=== PATIENT | female | born 1980 | race Caucasian/White ===

== ENCOUNTER 2020-11-24 13:40 | Emergency (ER) | payer OTHER, SELFPAY ==
--- NOTE | ~2020-11-24 | CT_ITS ---
EXAMINATION: CT ABDOMEN AND PELVIS WITHOUT CONTRAST CLINICAL INFORMATION: pt c 6cm sclerotic region in pelvis unknown etiology . COMPARISON: Plain films as evening. TECHNIQUE: Multidetector volumetric imaging was performed from the superior aspect of the liver through the pubic symphysis without contrast per request. Sagittal and coronal reformatted images were obtained on the technologist workstation. This CT examination was performed using dose optimization techniques as appropriate, variously including the following: *Automated exposure control *Adjustment of mA and/or kV according to patient size (this includes techniques or standardized protocols for targeted exams where dose is matched to indication/reason for exam; i.e. extremities or head) *Use of iterative reconstruction technique DLP: 780 mGy-cm. FINDINGS: LUNG BASES: The visualized lung bases are unremarkable. LIVER, GALLBLADDER, BILIARY TREE: The non-contrast liver is normal in size, shape, and attenuation. No focal hepatic lesion or biliary ductal dilatation is present. The gallbladder is unremarkable with no evidence of radiopaque gallstones, gallbladder wall thickening, or obvious pericholecystic inflammatory changes. PANCREAS: Unremarkable. SPLEEN: Unremarkable. ADRENAL GLANDS: Unremarkable. KIDNEYS AND URETERS: The kidneys are normal in size, shape, and attenuation. No hydronephrosis, hydroureter, or calculi seen. No perinephric stranding. BLADDER: Unremarkable. GASTROINTESTINAL TRACT: Few scattered colonic diverticula are seen. No evidence for diverticulitis or colonic wall thickening. Decompressed retrocecal appendix partially visualized. No focal inflammatory changes. Visualized small bowel unremarkable. ABDOMINAL WALL: Small fat-containing umbilical hernia LYMPHOVASCULAR STRUCTURES: No lymphadenopathy. The aorta is unremarkable.. PELVIC VISCERA: Unremarkable. OSSEUS STRUCTURES: Degenerative changes in the pubic symphysis with nonspecific sclerosis in the left pubic symphysis and milder subchondral degenerative sclerotic changes in the right pubic symphysis. There is focal sclerosis within the posterior right iliac bone abutting the sacroiliac joint with additional sclerosis crossing the sacroiliac joint into the adjacent right sacrum I do not appreciate any bony destruction or periosteal reaction. No soft tissue component CT/CT abdomen pelvis wo con IMPRESSION: I do not appreciate any acute intra-abdominal process. There are regions of sclerosis within the right pelvis abutting the sacroiliac joint and on the left pubic bone abutting the pubic symphysis. Etiology is uncertain. I do not appreciate any cortical disruption or periosteal reaction. No soft tissue component. No aggressive features. Etiology is uncertain. These abut the right sacroiliac joint and pubic symphysis suggesting possible degenerative changes as the underlying etiology although the right iliac sclerosis extends more lateral than would be expected for sequela of sacroiliitis. Clinical correlation would be needed.
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
[2020-11-24 14:03] VITALS: BP 150/94; BP 180/108; PULSE 88; PULSE 92; RESP 18; TEMP 37; O2SAT 96; O2SAT 98; BMI 30.9
[2020-11-24] MEDS: diazePAM 5 MG TABLET PO (15:12)
[2020-11-24] MEDS: oxyCODONE HCl Immed Release 5 MG TABLET PO (15:12)
[2020-11-24 15:17] VITALS: BP 152/87; PULSE 84; RESP 17; O2SAT 99
[2020-11-24 15:38] VITALS: BP 145/92; PULSE 81; RESP 16; TEMP 36.6; O2SAT 98
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
[2020-11-24] MEDS: Cyclobenzaprine HCl 10 MG TABLET 5 MG PO (19:25)
[2020-11-24 19:34] VITALS: BP 136/76; PULSE 78; RESP 17; TEMP 36.8; O2SAT 98
== END 2020-11-24 20:27 | disposition home or self-care (01) ==
PROVIDERS: Emergency Provider Emergency Medicine Emergency Medical Services
DX: S13.4XXA Sprain of ligaments of cervical spine, initial encounter (principal); S06.0X9A Concussion with loss of consciousness of unspecified duration, initial encounter; M54.2 Cervicalgia; G44.309 Post-traumatic headache, unspecified, not intractable; R07.81 Pleurodynia; M25.552 Pain in left hip; M25.551 Pain in right hip; M25.562 Pain in left knee; M25.561 Pain in right knee; V43.52XA Car driver injured in collision with other type car in traffic accident, initial encounter; Y93.9 Activity, unspecified; Y92.410 Unspecified street and highway as the place of occurrence of the external cause; Y99.9 Unspecified external cause status; Z79.899 Other long term (current) drug therapy
CPT/HCPCS: 70450; 71046; 72125; 73522; 73564; 74176; 99284

== ENCOUNTER 2020-12-23 11:14 | Outpatient (REF) | payer MEDICAID, SELFPAY ==
--- NOTE | ~2020-12-23 | XR_ITS ---
EXAMINATION: XR CERVICAL SPINE CLINICAL INFORMATION: Cervicalgia COMPARISON: CT scan of the cervical spine November 2020. TECHNIQUE: 5 views of the cervical spine including obliques FINDINGS: Slightly limited in that the cervical thoracic junction is obscured on the lateral view from the overlying soft tissues and bone. The vertebral alignment is normal. No intrinsic bony abnormality. The disc heights and neural foramina are well maintained. The endplates and posterior elements are normal. No fracture or subluxation. The surrounding prevertebral soft tissues are unremarkable. XR/XR cervical spine min 6V IMPRESSION: Unremarkable examination.
== END 2020-12-23 11:15 | disposition home or self-care (01) ==
LOC: HO.XRAY 11:14
PROVIDERS: PCP Internal Medicine; Visit Provider Emergency Medicine
DX: M54.2 Cervicalgia (principal)
CPT/HCPCS: 72052

== ENCOUNTER 2021-01-19 15:17 | Emergency (ER) | payer OTHER, MEDICAID, SELFPAY ==
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
[2021-01-19 15:25] VITALS: BP 124/76; BP 138/103; PULSE 81; PULSE 98; RESP 16; TEMP 36.7; O2SAT 98; BMI 36.8
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
[2021-01-19] MEDS: Metoclopramide HCl 10 MG/2 ML VIAL IVPUSH (16:23)
[2021-01-19] MEDS: Ketorolac Tromethamine 30 MG/ML VIAL IVPUSH (16:23)
[2021-01-19] MEDS: 0.9 % Sodium Chloride 1,000 ML 999 ML IV (16:23)
[2021-01-19] MEDS: diphenhydrAMINE HCL 50 MG/ML VIAL 25 MG IVPUSH (16:23)
[2021-01-19 17:58] VITALS: BP 130/92; PULSE 78; RESP 16; TEMP 37.1; O2SAT 96
== END 2021-01-19 18:14 | disposition home or self-care (01) ==
PROVIDERS: Emergency Provider Emergency Medicine; PCP Internal Medicine
DX: G43.909 Migraine, unspecified, not intractable, without status migrainosus (principal); M62.838 Other muscle spasm; M54.2 Cervicalgia; M79.602 Pain in left arm; Z79.899 Other long term (current) drug therapy
CPT/HCPCS: 70450; 72125; 96365; 96375; 99284; J1200; J1885; J2765

== ENCOUNTER 2021-05-08 15:41 | Outpatient (REF) | payer OTHER, MEDICAID, SELFPAY ==
--- NOTE | ~2021-05-08 | US_ITS ---
EXAMINATION: US VENOUS ULTRASOUND WITH DOPPLER LOWER EXTREMITY, LEFT CLINICAL INFORMATION: Left lower extremity pain and swelling. Assess for occult DVT. COMPARISON: None TECHNIQUE: Ultrasound of the deep veins is performed from the hip to the calf with compression sonography and color and pulse Doppler assessment. Spectral analysis with color-flow imaging is performed. FINDINGS: There is normal venous compression and respiratory variation and augmented flow. The visualized common femoral vein, superficial femoral vein, profunda femoral vein, popliteal vein, and the trifurcation region shows no evidence of deep venous thrombosis. No visible popliteal fossa cyst. US/US venous duplex LE LT IMPRESSION: No DVT demonstrated in the left lower extremity.
--- NOTE | ~2021-05-08 | XR_ITS ---
EXAMINATION: XR CHEST CLINICAL INFORMATION: Unspecified asthma, uncomplicated COMPARISON: Chest 11/24/2020 TECHNIQUE: 2 views of the chest were obtained. FINDINGS: No significant abnormality is noted involving the heart, lungs, mediastinum, bony thorax or soft tissues. XR/XR chest 2V IMPRESSION: Unremarkable chest examination.
== END 2021-05-08 15:42 | disposition home or self-care (01) ==
LOC: HO.US 15:41
PROVIDERS: Absent Provider Internal Medicine; PCP Internal Medicine; Visit Provider General Practice
DX: M25.562 Pain in left knee (principal); M79.662 Pain in left lower leg; J45.909 Unspecified asthma, uncomplicated; R10.13 Epigastric pain
CPT/HCPCS: 71046; 93971

== ENCOUNTER 2021-10-06 09:15 | Outpatient (REF) | payer MEDICAID, SELFPAY ==
[2021-10-06 10:51] LABS: MANUAL DIFF FLAG NO
[2021-10-06 11:43] LABS: Basophils Absolute Auto 0.1 X10*3/uL (0.0-0.2); Basophils Percent Auto 0.9 % (0-2); Eosinophils Absolute Auto 0.2 X10*3/uL (0.0-0.4); Eosinophils Percent Auto 3.4 % (0-4); Hematocrit 39.2 % (37.0-47.0); Hemoglobin 12.3 g/dl (12.0-16.0); Imm Gran Abs Auto 0.02 X10*3/uL (0.00-0.03); Imm Gran Pct Auto 0.3 % (0.0-0.4); Lymphocytes Absolute Auto 1.8 X10*3/uL (1.2-4.9); Lymphocytes Percent Auto 26.7 % (20-40); Mean Corpuscular HGB Conc 31.4 g/dl (31.0-35.0); Mean Corpuscular Hemoglobin 25.4 pg (27.0-33.0); Mean Corpuscular Volume 80.8 fL (80.0-98.0); Monocytes Absolute Auto 0.4 X10*3/uL (0.1-1.2); Monocytes Percent Auto 6.2 % (2-11); Neutrophils Absolute Auto 4.2 x10*3/uL (2.0-8.3); Neutrophils Percent Auto 62.5 % (45-73); Platelet Count 237 X10*3/uL (160-400); Red Blood Count 4.85 X10*6/uL (4.20-5.50); Red Cell Distribution Width 13.6 % (11.0-16.0); White Blood Count 6.8 X10*3/uL (4.8-10.8)
[2021-10-06 11:52] LABS: Alanine Aminotransferase 14 U/L (0-31); Albumin Level 4.1 g/dL (3.5-5.0); Alkaline Phosphatase 99 U/L (39-117); Anion Gap 11 (12-20); Aspartate Amino Transferase 15 U/L (5-31); Bilirubin Total 0.2 mg/dL (0.0-1.0); Blood Urea Nitrogen 8 mg/dL (9-16); Calcium 9.2 mg/dL (8.4-10.2); Carbon Dioxide 25 mmol/L (22-29); Chloride 105 mmol/L (96-108); Estimated Glomerular Filt Rate > 60; Glucose Fasting 93 mg/dL (60-99); Potassium 4.8 mmol/L (3.3-5.1); Sodium 136 mmol/L (135-145); Total Protein 7.6 g/dL (6.5-8.0)
== END 2021-10-06 09:16 | disposition home or self-care (01) ==
LOC: HO.LAB 09:15
PROVIDERS: PCP Internal Medicine; Referring Provider Internal Medicine; Visit Provider Nurse Practitioner
DX: R13.19 Other dysphagia (principal); K21.9 Gastro-esophageal reflux disease without esophagitis; K59.00 Constipation, unspecified
CPT/HCPCS: 36415; 80053; 85025

== ENCOUNTER 2021-11-24 09:42 | Day surgery (SDC) | payer MEDICAID, SELFPAY ==
[2021-11-20 13:16] VITALS: BMI 44.3
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
[2021-11-24] MEDS: Lactated Ringers 1,000 ML 50 ML IVCONT (10:27)
--- NOTE | 2021-11-24 11:18 | MHC.SHP ---
Pre-Procedural Eval Section A Date of Service: 11/24/21 The patient is an INPATIENT: No The History & Physical has been completed within 30 days and I have reviewed it.: No Section B Chief Complaint: dysphagia, reflux disease Details of Present Illness: dysphagia, GERD, early satiety Relevant Family History (Specify if Yes): No Relevant Social History: None Present Medications: see Short Stay Collaborative assessment Medical History: Significant History (Anxiety Asthma Depression) History of Previous Operations: Relevant previous surgery/procedure and date(s) ( history of tubal ligation, history of ) Allergies: Allergies Allergy/AdvReac Type Severity Reaction Status Date / Time No Known Allergies Allergy Verified 11/20/21 13:14 [No Known Allergies*] Review of Systems Sugical H&P ROS: Negative: Constitution, Cardiovascular and Respiratory and Yes, Specify: Gastrointestinal ( dysphagia) Exam Surgical H&P Exam: Normal: Heart, Normal: Lungs, Normal: Extremities and Normal: Abdomen Plan Diagnosis/Plan: Unchanged I have reviewed the history and physical and performed a pertinent physical examination on my patient. No changes have occurred unless specified.
--- NOTE | 2021-11-24 11:20 | P.OP_ITS ---
Operative Note Operative Note Date of Service: 11/24/21 Narrative: Pre-op diagnosis: dysphagia, GERD, early satiety Post-op diagnosis:?other (GERD, dysphagia, esophagitis with stricture, gastritis) Procedure: FLEXIBLE TRANSORAL UPPER GASTROINTESTINAL ENDOSCOPY WITH BIOPSIES AND ESOPHAGEAL BALLOON DILATION Consent:?Indications for the procedure and potential complications of bleeding, perforation, reaction to medications and missed diagnosis were discussed with the patient with the help of a Chinese recoil spring winder and informed consent was obtained. Instrument:?Olympus GIF H 190 mid size upper endoscope Monitoring: Vital signs and clinical assessment, continuous EKG monitoring, Pulse oximetry, Carbon Dioxide monitoring and blood pressure monitoring were done throughout the procedure. Procedure:?The patient was placed in the left lateral decubitis position and pre-procedure medications were administered and a bite block was placed. The endoscope was inserted into the mouth and advanced under direct vision to the third part of duodenum. A careful inspection was made as the upper endoscope was withdrawn including a retroflexed examination of the proximal stomach; Findings and interventions are described below. Findings: Larynx:? Normal Esophagus: GE junction at 34 cms, small hiatal hernia 34 to 36 cms. Focal esophagitis with 1-2 cms erosions at the GE junction with mild narrowing - biopsied. Esophageal balloon dilation was performed with an 18 mm (54 F) CRE balloon x 60 seconds Stomach: Moderate gastric erythema. Biopsies were obtained. Grade 2 flap valve on retroflexed examination of the cardia. Duodenum: Normal bulb and descending duodenum Intervention: Biopsies and esophageal balloon dilation as noted above Impression and Post Procedure Diagnosis: Endoscopy Findings: ESOPHAGUS: GE junction at 34 cms, small hiatal hernia 34 to 36 cms. Focal esophagitis with 1-2 cms erosions at the GE junction with mild narrowing - biopsied. Esophageal balloon dilation was performed with 18 mm (54 F) CRE balloon x 60 seconds STOMACH: Gastritis Plan: Continue Omeprazole 40 mg daily. Await pathology results Patient has an appointment on 12/08/21 in the GI Clinic with? Niurka Kumar NP . Repeat EGD in 3 months to confirm esophagitis has healed. Above findings were reviewed with the patient and GERD and Hiatal Hernia handouts were given in the discharge area Surgeon: Rommel Gonzalez MD Anesthesia:?EVERARDO (Stacey Boykin CRNA) Was an Operating Engineer Apprentice used for this Procedure?:?No Operating Engineer Apprentice:?Liana Cruz Estimated blood loss (mL):?0 Pathology:?other (A- GASTRIC ANTRUM? B- ESOPHAGEAL STRICTURE BIOPSIES) Condition:?stable Disposition:?PACU
[2021-11-24 12:18] VITALS: BP 110/77; PULSE 92; RESP 18; TEMP 36.1; O2SAT 99
[2021-11-24 12:33] VITALS: BP 129/81; PULSE 78; RESP 16; TEMP 36.1; O2SAT 100
[2021-11-24 12:48] VITALS: BP 134/85; PULSE 89; RESP 16; TEMP 36.1; O2SAT 100
[2021-11-24 13:02] VITALS: PULSE 78; RESP 16; TEMP 36.1; O2SAT 100
== END 2021-11-24 13:49 | disposition home or self-care (01) ==
PROVIDERS: PCP Internal Medicine; Visit Provider Internal Medicine Gastroenterology
PROC: 0DJ08ZZ Inspection of Upper Intestinal Tract, Via Natural or Artificial Opening Endoscopic (ICD-10-PCS; CPT 43235; principal; 2021-11-24 10:50)
DX: K21.9 Gastro-esophageal reflux disease without esophagitis (principal); R13.19 Other dysphagia; K20.80 Other esophagitis without bleeding; K22.2 Esophageal obstruction; K29.50 Unspecified chronic gastritis without bleeding; K44.9 Diaphragmatic hernia without obstruction or gangrene; R68.81 Early satiety; K59.00 Constipation, unspecified; E78.00 Pure hypercholesterolemia, unspecified; E55.9 Vitamin D deficiency, unspecified; G47.33 Obstructive sleep apnea (adult) (pediatric); J45.909 Unspecified asthma, uncomplicated; Z79.899 Other long term (current) drug therapy
CPT/HCPCS: 43249; 43239; 88305; 88342; C1726

== ENCOUNTER → 2021-12-08 12:26 | Outpatient (BNVA) | payer MEDICAID, SELFPAY | PROVIDERS: Referring Provider Internal Medicine; Visit Provider Nurse Practitioner | DX: K30 Functional dyspepsia (principal); A04.8 Other specified bacterial intestinal infections | CPT/HCPCS: 99212 ==

== ENCOUNTER 2022-02-27 10:13 | Outpatient (REF) | payer MEDICAID, SELFPAY ==
[2022-02-27 10:30] LABS: MANUAL DIFF FLAG NO
[2022-02-27 11:54] LABS: Basophils Percent Auto 0.9 % (0-2); Eosinophils Absolute Auto 0.1 X10*3/uL (0.0-0.4); Eosinophils Percent Auto 2.1 % (0-4); Hematocrit 34.9 % (37.0-47.0); Hemoglobin 11.2 g/dl (12.0-16.0); Imm Gran Abs Auto 0.02 X10*3/uL (0.00-0.03); Imm Gran Pct Auto 0.4 % (0.0-0.4); Lymphocytes Absolute Auto 1.4 X10*3/uL (1.2-4.9); Lymphocytes Percent Auto 30.6 % (20-40); Mean Corpuscular HGB Conc 32.1 g/dl (31.0-35.0); Mean Corpuscular Hemoglobin 25.9 pg (27.0-33.0); Mean Corpuscular Volume 80.6 fL (80.0-98.0); Mean Platelet Volume 11.3 fL (9.4-12.3); Monocytes Absolute Auto 0.3 X10*3/uL (0.1-1.2); Monocytes Percent Auto 6.4 % (2-11); Neutrophils Absolute Auto 2.8 x10*3/uL (2.0-8.3); Neutrophils Percent Auto 59.6 % (45-73); Platelet Count 212 X10*3/uL (160-400); Red Blood Count 4.33 X10*6/uL (4.20-5.50); Red Cell Distribution Width 14.2 % (11.0-16.0); White Blood Count 4.7 X10*3/uL (4.8-10.8)
[2022-02-27 12:21] LABS: TSH reflex Free T4 1.04 uIU/mL (0.32-4.0)
== END 2022-02-27 10:14 | disposition home or self-care (01) ==
LOC: HO.LAB 10:13
PROVIDERS: PCP Internal Medicine; Visit Provider Nurse Practitioner
DX: K30 Functional dyspepsia (principal); R13.19 Other dysphagia; K21.9 Gastro-esophageal reflux disease without esophagitis; K59.00 Constipation, unspecified; A04.8 Other specified bacterial intestinal infections; R63.5 Abnormal weight gain
CPT/HCPCS: 36415; 84443; 85025; 99212

== ENCOUNTER → 2022-05-15 10:56 | Outpatient (BNVA) | payer MEDICAID, SELFPAY | PROVIDERS: PCP Internal Medicine; Visit Provider Nurse Practitioner | DX: K30 Functional dyspepsia (principal); A04.8 Other specified bacterial intestinal infections; R13.19 Other dysphagia; K21.9 Gastro-esophageal reflux disease without esophagitis; K59.00 Constipation, unspecified | CPT/HCPCS: 99212 ==

== ENCOUNTER → 2022-05-25 10:02 | Outpatient (BNVA) | payer MEDICAID, SELFPAY | PROVIDERS: PCP Internal Medicine; Visit Provider Nurse Practitioner Family | DX: G56.92 Unspecified mononeuropathy of left upper limb (principal); M79.602 Pain in left arm; R29.898 Other symptoms and signs involving the musculoskeletal system; M25.512 Pain in left shoulder | CPT/HCPCS: 99202 ==

== ENCOUNTER 2022-05-31 11:00 | Outpatient (RCR) | payer OTHER, MEDICAID, SELFPAY | END 2022-11-01 09:35 | disposition home or self-care (01) | LOC: HO.PTCHIC 11:00 | PROVIDERS: PCP Internal Medicine; Visit Provider Internal Medicine | DX: M25.562 Pain in left knee (principal) | CPT/HCPCS: 97014; 97110; 97162 ==

== ENCOUNTER 2022-08-02 10:54 | Day surgery (SDC) | payer MEDICAID, SELFPAY ==
[2022-07-26 13:49] VITALS: BMI 44.1
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
[2022-08-02 11:02] VITALS: BP 160/108; PULSE 92; RESP 16; TEMP 36.5; O2SAT 96
[2022-08-02] MEDS: Lactated Ringers 1,000 ML 100 ML IVCONT (11:19)
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
--- NOTE | 2022-08-02 11:42 | P.OP_ITS ---
Operative Note Operative Note Date of Service: 08/02/22 Narrative: Procedure: Esophagogastroduodenoscopy Endoscopist: Tatum Nicholas MD Indication: History of esophagitis and GEJ stenosis Anesthesia Provider: Bernice Rockwell CRNA Anesthesia Type: MAC Instrument: [id number] ?? EGD Procedure:?? The procedure, indications, preparation and potential complications were reviewed with the patient, who indicated understanding and gave written informed consent to proceed. A physical exam was performed. The endoscope was introduced through the mouth, and advanced to the second part of duodenum. The mucosa was carefully examined on slow withdrawal of the endoscope. The patient tolerated the procedure well. There were no immediate complications.? ? EGD Findings:? * Esophagus:? Multiple erosions and superficial ulcerations measuring 1-2 cm long at the GEJ involving almost the entire circumference. The Z line was at 36 cm. Small hiatal hernia was noted. Diaphragmatic pinch was at 38 cm. * Stomach:? Normal mucosa was noted in the stomach. Random gastric biopsies were taken to rule out H Pylori infection. * Duodenum:? Normal mucosa was noted in the whole of the examined duodenum. ? EGD Impressions:? * Grade D esophagitis * Normal stomach (biopsy) * Normal duodenum ?? Recommendations:?? * Start high dose PPI therapy. Pantoprazole 40mg BID prescribed for 8 weeks followed by 40mg once daily * Sucralfate 1g QID for 2 weeks * Repeat EGD in 10-12 weeks to assess for healing. * Follow biopsy results. Our office will call or send a letter with results within 7-10 days. * If H pylori +, patient will be prescribed eradication therapy followed by test of cure. * Avoid NSAIDs. Above has been reviewed with the patient. Relevant educational hand outs were provided at discharge. ?
[2022-08-02 12:07] VITALS: BP 126/81; PULSE 108; TEMP 36.6; O2SAT 98
[2022-08-02 12:22] VITALS: BP 131/78; PULSE 74; RESP 18; O2SAT 98
[2022-08-02 12:37] VITALS: BP 129/72; PULSE 74; RESP 18; O2SAT 98
[2022-08-02 12:52] VITALS: BP 134/77; PULSE 77; RESP 18; TEMP 37.3; O2SAT 98
== END 2022-08-02 13:46 | disposition home or self-care (01) ==
PROVIDERS: PCP Internal Medicine; Visit Provider Internal Medicine
PROC: 0DJ08ZZ Inspection of Upper Intestinal Tract, Via Natural or Artificial Opening Endoscopic (ICD-10-PCS; CPT 43235; principal; 2022-08-02 11:50)
DX: R13.19 Other dysphagia (principal); K21.9 Gastro-esophageal reflux disease without esophagitis; K20.80 Other esophagitis without bleeding; K44.9 Diaphragmatic hernia without obstruction or gangrene; E78.00 Pure hypercholesterolemia, unspecified; J45.909 Unspecified asthma, uncomplicated; G47.33 Obstructive sleep apnea (adult) (pediatric); F41.1 Generalized anxiety disorder; F32.A Depression, unspecified; Z79.51 Long term (current) use of inhaled steroids; Z79.899 Other long term (current) drug therapy
CPT/HCPCS: 43239; 88305; 88342; J2250

== ENCOUNTER → 2022-08-16 10:57 | Outpatient (BNVA) | payer MEDICAID, SELFPAY | PROVIDERS: PCP Internal Medicine; Visit Provider Nurse Practitioner | DX: K22.10 Ulcer of esophagus without bleeding (principal); R13.19 Other dysphagia | CPT/HCPCS: 99212 ==

== ENCOUNTER → 2023-03-14 10:43 | Outpatient (BNVA) | payer MEDICAID, SELFPAY | PROVIDERS: Visit Provider Nurse Practitioner | DX: Z01.818 Encounter for other preprocedural examination (principal); K22.10 Ulcer of esophagus without bleeding; K30 Functional dyspepsia; K21.9 Gastro-esophageal reflux disease without esophagitis; K59.00 Constipation, unspecified | CPT/HCPCS: 99212 ==

== ENCOUNTER 2023-04-29 13:12 | Outpatient (AMB) | payer MEDICAID, SELFPAY ==
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
== END 2023-04-29 13:51 | disposition home or self-care (01) ==
PROVIDERS: PCP Internal Medicine; Referring Provider Internal Medicine; Visit Provider Surgery
DX: D17.20 Benign lipomatous neoplasm of skin and subcutaneous tissue of unspecified limb (principal)
CPT/HCPCS: 99203

== ENCOUNTER → 2023-04-29 13:12 | Outpatient (BNVA) | payer MEDICAID, SELFPAY | PROVIDERS: PCP Internal Medicine; Referring Provider Internal Medicine; Visit Provider Surgery | DX: D17.21 Benign lipomatous neoplasm of skin and subcutaneous tissue of right arm (principal) | CPT/HCPCS: 99202 ==

== ENCOUNTER 2023-05-21 07:46 | Day surgery (SDC) | payer MEDICAID, SELFPAY ==
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
[2023-05-21] VITALS (7 sets, daily range): BP systolic 118–148; BP diastolic 70–87; PULSE 57–75; RESP 14–18; TEMP 36.1–36.8; O2SAT 95–99; BMI 36.4
[2023-05-21] MEDS: Lactated Ringers 1,000 ML 100 ML IVCONT (09:13)
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
--- NOTE | 2023-05-21 09:32 | PC.NURSE ---
dr. boyle aware that patient has runny clear nose and congested sounding voice. patient states this is her baseline due to her chronic allergies. afebrile. no cough noted. lcta. no interventions at this time.
--- NOTE | 2023-05-21 09:37 | MHC.SHP ---
Pre-Procedural Eval Section A Date of Service: 05/21/23 The patient is an INPATIENT: No Changes since office visit: No Cold of Flu in the past 2 weeks, No New Medical Problems, No Changes in Medication and No Patient answered all questions The History & Physical has been completed within 30 days and I have reviewed it.: Yes Section B Chief Complaint: Benign lipomatous neoplasm of skin and subcutaneou Allergies: Allergies Allergy/AdvReac Type Severity Reaction Status Date / Time No Known Allergies Allergy Verified 05/21/23 09:23 [No Known Allergies*] Plan I have reviewed the history and physical and performed a pertinent physical examination on my patient. No changes have occurred unless specified. Time Spent With Patient Time: Total time managing care of this patient today ____ minutes.
--- NOTE | 2023-05-21 11:06 | W.PM.OPN ---
Operative Note Operative Note Date of Service: 05/21/23 Narrative: Preop diagnosis: Lipoma right axilla Postop diagnosis: The same Procedure: Excision of lipoma right axilla Surgeon: Efrain Costa MD The patient is a 42-year-old female with note of a soft, lipomatous mass on the right axilla that was not really well-defined. She understood the technique of excision under anesthesia. She was aware of the risks, benefits, and alternatives. She was brought to the operating room. She was placed supine under general anesthesia via laryngeal mask airway. The right arm was abducted to expose the right axilla. The right breast was retracted away from the axilla using wide tape. The right axilla was prepped and draped in the usual sterile fashion. A surgical time-out was done. The patient received cefazolin 2 g IV preoperatively . I infiltrated the planned line of incision on the skin overlying the lipoma using lidocaine 1%. I made an incision on the skin overlying this lipoma using blade 15 and this was carried down through the full-thickness of the skin and subcutaneous fat. I was able to visualize lipomatous tissue and sharply dissected this off of the rest of subcutaneous layer with Metzenbaum scissors and electrocautery. This lipoma was not well-defined so we encountered some oozing and bleeding during the dissection which we occasionally had to ligate with Polysorb 3-0 ties. Continued to circumferentially excise this lipoma. This fragmented during the dissection The aggregate size with lipoma was about 3 cm I irrigated. I observed for hemostasis. Once hemostasis was confirmed, I proceeded to reapposed the deep subcutaneous layer with multiple Polysorb 3-0 simple interrupted sutures. Skin closure was achieved with Polysorb 4-0 subcuticular running sutures. I infiltrated the incision with Marcaine 0.5% for postop analgesia. Dressings were applied. The procedure was then completed . The patient tolerated the procedure well. There were no immediate complications. Initial and final counts of sponges and instruments were correct. Estimated blood loss about 40 cc. The patient was extubated without difficulty and transferred to the recovery room with stable vital signs.
== END 2023-05-21 12:41 | disposition home or self-care (01) ==
PROVIDERS: PCP Internal Medicine; Visit Provider Surgery
PROC: (CPT 24071; principal; 2023-05-21 11:30)
DX: D17.21 Benign lipomatous neoplasm of skin and subcutaneous tissue of right arm (principal); Z80.3 Family history of malignant neoplasm of breast; J45.909 Unspecified asthma, uncomplicated; E78.00 Pure hypercholesterolemia, unspecified; G47.33 Obstructive sleep apnea (adult) (pediatric); F32.A Depression, unspecified; F41.1 Generalized anxiety disorder; Z79.51 Long term (current) use of inhaled steroids; Z79.899 Other long term (current) drug therapy
CPT/HCPCS: 24071; 88304; 88305; J0690; J1885; J2250; J2405; J2795; J3010

== ENCOUNTER → 2023-05-21 07:46 | Outpatient (BNV) | payer MEDICAID, SELFPAY | PROVIDERS: PCP Internal Medicine; Visit Provider Surgery | DX: D17.1 Benign lipomatous neoplasm of skin and subcutaneous tissue of trunk (principal) | CPT/HCPCS: 21552 ==

== ENCOUNTER 2023-05-30 10:11 | Day surgery (SDC) | payer MEDICAID, SELFPAY ==
[2023-05-27 13:59] VITALS: BMI 42.8
[2023-05-27 14:03] VITALS: BMI 42.8
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
[2023-05-30 11:43] VITALS: BP 166/87; PULSE 68; RESP 18; TEMP 36.8; O2SAT 96
[2023-05-30] MEDS: Lactated Ringers 1,000 ML 100 ML IVCONT (12:06)
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
--- NOTE | 2023-05-30 13:06 | P.OP_ITS ---
Operative Note Operative Note Date of Service: 05/30/23 Narrative: Procedure: Esophagogastroduodenoscopy Endoscopist: Tatum Nicholas MD Indication: Esophagitis Anesthesia Provider: Christy Dent MD Anesthesia Type: MAC ?? EGD Procedure:?? The procedure, indications, preparation and potential complications were reviewed with the patient, who indicated understanding and gave written informed consent to proceed. A physical exam was performed. The endoscope was introduced through the mouth, and advanced to the second part of duodenum. The mucosa was carefully examined on slow withdrawal of the endoscope. The patient tolerated the procedure well. There were no immediate complications.? ? EGD Findings:? * Esophagus:? Erythema and ulceration in almost 75% of the circumference of the esophagus upto 2 cm above GEJ. Z line was at 35 cm. A small hiatal hernia was noted with the diaphragmatic pinch at 37 cm. Cold forceps biopsies were taken from the lower esophagus. * Stomach:? A superficial healing ulcer was noted in the fundus of the stomach. Cold forceps biopsies were taken from the edge of the ulcer. Remaining mucosa was normal in the stomach. * Duodenum:? Normal mucosa was noted in the whole of the examined duodenum. ? EGD Impressions:? * Grade C esophagitis (biopsy) * Hiatal hernia * Healing gastric ulcer (biopsy) * Normal duodenum ?? Recommendations:?? * Follow biopsy results. Our office will call or send a letter with results within 7-10 days. * Since minimal response to double dose pantoprazole, will switch to rabeprazole 20 mg BID in case pt is a fast [id number] metabolizer. This is to be continued x 8 weeks and then decrease to once daily. * Barium esophagogram ordered to further evaluate hiatal hernia * Repeat EGD in 8-12 weeks. If has persistent erosive esophagitis, may need foregut surg referral for antireflux surgery vs MSA (Linx) * Avoid NSAIDs, etOH and smoking Above has been reviewed with the patient.
[2023-05-30 13:15] VITALS: BP 140/70; PULSE 84; RESP 16; TEMP 36.8; O2SAT 99
[2023-05-30 13:30] VITALS: BP 141/72; PULSE 83; RESP 18; O2SAT 100
--- NOTE | 2023-05-30 13:36 | HO.POSTANES ---
Post Anesthesia Evaluation Post Anesthesia Evaluation Date of Service: 05/30/23 Vital Signs: Vital Signs Temp Pulse Resp BP Pulse Ox O2 Del Method 05/30/23 11:43 98.2 F 68 18 166/87 H 96 Room Air Anesthesia: Monitored Mental Status: Awake Pain Control: Satisfactory Nausea/Vomiting: None Hydration: Adequate Anesthesia-Related Issues: No Anes. Related Issues
[2023-05-30 13:45] VITALS: BP 161/79; PULSE 83; RESP 18; TEMP 36.8; O2SAT 100
== END 2023-05-30 14:21 | disposition home or self-care (01) ==
PROVIDERS: PCP Internal Medicine; Visit Provider Internal Medicine
PROC: 0DJ08ZZ Inspection of Upper Intestinal Tract, Via Natural or Artificial Opening Endoscopic (ICD-10-PCS; CPT 43235; principal; 2023-05-30 12:50)
DX: K20.80 Other esophagitis without bleeding (principal); K21.9 Gastro-esophageal reflux disease without esophagitis; K25.9 Gastric ulcer, unspecified as acute or chronic, without hemorrhage or perforation; K44.9 Diaphragmatic hernia without obstruction or gangrene; G47.33 Obstructive sleep apnea (adult) (pediatric); J45.909 Unspecified asthma, uncomplicated; E78.00 Pure hypercholesterolemia, unspecified; F32.A Depression, unspecified; Z79.899 Other long term (current) drug therapy
CPT/HCPCS: 43239; 88305; 88342

== ENCOUNTER → 2023-05-30 10:11 | Outpatient (BNV) | payer MEDICAID, SELFPAY | PROVIDERS: PCP Internal Medicine; Visit Provider Internal Medicine | DX: K20.90 Esophagitis, unspecified without bleeding (principal); K44.9 Diaphragmatic hernia without obstruction or gangrene | CPT/HCPCS: 43239 ==

== ENCOUNTER 2023-06-03 08:41 | Outpatient (AMB) | payer MEDICAID, SELFPAY ==
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
== END 2023-06-03 09:03 | disposition home or self-care (01) ==
PROVIDERS: PCP Internal Medicine; Visit Provider Surgery
DX: D17.20 Benign lipomatous neoplasm of skin and subcutaneous tissue of unspecified limb (principal)
CPT/HCPCS: 99024

== ENCOUNTER → 2023-06-03 08:41 | Outpatient (BNVA) | payer MEDICAID, SELFPAY | PROVIDERS: PCP Internal Medicine; Visit Provider Surgery ==

== ENCOUNTER 2023-09-12 11:16 | Outpatient (REF) | payer MEDICAID, SELFPAY ==
[2023-09-14 20:14] LABS: TS Negative Control Passed; TS Panel A 1; TS Panel B 2; TS Positive Control Passed; TSpotTB Negative (Negative)
== END 2023-09-12 11:17 | disposition home or self-care (01) ==
LOC: HO.CHCLDS 11:16
PROVIDERS: Visit Provider Internal Medicine
DX: J31.0 Chronic rhinitis (principal); J32.9 Chronic sinusitis, unspecified; I10 Essential (primary) hypertension; Z56.1 Change of job; Z11.1 Encounter for screening for respiratory tuberculosis
CPT/HCPCS: 36415; 86481

== ENCOUNTER 2023-12-04 11:21 | Outpatient (REF) | payer MEDICAID, SELFPAY ==
--- NOTE | ~2023-12-04 | XR_ITS ---
EXAMINATION: XR FOOT, RIGHT CLINICAL INFORMATION: Right foot pain. COMPARISON: None available. TECHNIQUE: AP, lateral, and oblique views of the right foot. FINDINGS: The clinical history provided reads only right foot pain. It does not state exactly where or what type pathology is suspected, limiting the study. Therefore, clinical correlation and follow-up is recommended, as indicated. The bones and soft tissues appear unremarkable. No fracture appreciated. Alignment is anatomic. Joint spaces appear maintained maintained. XR/XR foot RT 2V IMPRESSION: No significant radiographic finding.
== END 2023-12-04 11:22 | disposition home or self-care (01) ==
LOC: HO.XRAY 11:21
PROVIDERS: PCP Internal Medicine; Visit Provider Internal Medicine
DX: M79.671 Pain in right foot (principal)
CPT/HCPCS: 73620

== ENCOUNTER 2023-12-19 13:56 | Outpatient (AMB) | payer MEDICAID, SELFPAY ==
[2023-12-19 14:00] VITALS: BP 136/97; PULSE 100; BMI 43.3
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
== END 2023-12-19 14:33 | disposition home or self-care (01) ==
PROVIDERS: PCP Internal Medicine; Visit Provider Nurse Practitioner
DX: K25.9 Gastric ulcer, unspecified as acute or chronic, without hemorrhage or perforation (principal); K30 Functional dyspepsia; K21.9 Gastro-esophageal reflux disease without esophagitis; K59.00 Constipation, unspecified; K22.10 Ulcer of esophagus without bleeding
CPT/HCPCS: 99214

== ENCOUNTER → 2023-12-19 13:56 | Outpatient (BNVA) | payer MEDICAID, SELFPAY | PROVIDERS: PCP Internal Medicine; Visit Provider Nurse Practitioner | DX: K25.9 Gastric ulcer, unspecified as acute or chronic, without hemorrhage or perforation (principal); K30 Functional dyspepsia; K21.9 Gastro-esophageal reflux disease without esophagitis; K59.00 Constipation, unspecified; K22.10 Ulcer of esophagus without bleeding | CPT/HCPCS: 99212 ==

== ENCOUNTER 2024-01-01 11:28 | Outpatient (REF) | payer MEDICAID, SELFPAY ==
[2024-01-01 14:50] LABS: MANUAL DIFF FLAG NO
[2024-01-01 15:03] LABS: Basophils Absolute Auto 0.1 X10*3/uL (0.0-0.2); Basophils Percent Auto 0.8 % (0-2); Eosinophils Absolute Auto 0.3 X10*3/uL (0.0-0.4); Eosinophils Percent Auto 4.8 % (0-4); Hematocrit 36.3 % (37.0-47.0); Hemoglobin 11.7 g/dl (12.0-16.0); Imm Gran Abs Auto 0.01 X10*3/uL (0.00-0.03); Imm Gran Pct Auto 0.2 % (0.0-0.4); Lymphocytes Absolute Auto 2.1 X10*3/uL (1.2-4.9); Lymphocytes Percent Auto 32.9 % (20-40); Mean Corpuscular HGB Conc 32.2 g/dl (31.0-35.0); Mean Corpuscular Volume 80.7 fL (80.0-98.0); Mean Platelet Volume 10.6 fL (9.4-12.3); Monocytes Absolute Auto 0.4 X10*3/uL (0.1-1.2); Monocytes Percent Auto 6.5 % (2-11); Neutrophils Absolute Auto 3.4 x10*3/uL (2.0-8.3); Neutrophils Percent Auto 54.8 % (45-73); Platelet Count 233 X10*3/uL (160-400); Red Cell Distribution Width 14.4 % (11.0-16.0); White Blood Count 6.3 X10*3/uL (4.8-10.8)
[2024-01-01 15:55] LABS: Alanine Aminotransferase 14 U/L (0-31); Albumin Level 4.2 g/dL (3.5-5.0); Alkaline Phosphatase 88 U/L (39-117); Anion Gap 10 (12-20); Aspartate Amino Transferase 19 U/L (5-31); Bilirubin Total 0.3 mg/dL (0.0-1.0); Blood Urea Nitrogen 12 mg/dL (9-16); Calcium 9.2 mg/dL (8.4-10.2); Carbon Dioxide 26 mmol/L (22-29); Chloride 106 mmol/L (96-108); Cholesterol 206 mg/dL (<200); Estimated Glomerular Filt Rate > 60; Glucose Random 63 mg/dL (60-115); HDL Cholesterol 61 mg/dL (>40); LDL Cholesterol Calculated 112 mg/dL (<100); Potassium 3.8 mmol/L (3.3-5.1); Sodium 138 mmol/L (135-145); Total Protein 7.9 g/dL (6.5-8.0); Triglycerides 167 mg/dL (<150)
[2024-01-01 16:42] LABS: TSH reflex Free T4 1.47 uIU/mL (0.32-4.0)
[2024-01-02 08:11] LABS: ~HepC Num1 0.08 S/CO (0.00-0.79); ~Hepatitis C Antibody Nonreactive (Nonreactive)
== END 2024-01-01 11:29 | disposition home or self-care (01) ==
LOC: HO.CHCLDS 11:28
PROVIDERS: Visit Provider Internal Medicine
DX: Z00.00 Encounter for general adult medical examination without abnormal findings (principal); D50.9 Iron deficiency anemia, unspecified; I10 Essential (primary) hypertension
CPT/HCPCS: 36415; 80053; 80061; 84443; 85025; 86803

== ENCOUNTER 2024-01-23 09:57 | Outpatient (REF) | payer MEDICAID, SELFPAY ==
--- NOTE | ~2024-01-23 | FL_ITS ---
EXAMINATION: XR FLUOROSCOPY UPPER GI WITH AIR CLINICAL INFORMATION: Dysphagia COMPARISON: None TECHNIQUE: Fluoroscopic air contrast upper GI examination was performed utilizing standard techniques with thin and thick barium and effervescent granules. Numerous spot images were obtained. FINDINGS: Limited lateral cine images of the oropharynx and hypopharynx demonstrate an impaired swallowing mechanism with significant difficulty swallowing both the thick and thin consistency barium. No tracheal penetration, glottic or subglottic aspiration identified. No nasopharyngeal reflux present. There are no obvious masses or diverticulum noted in the hypopharynx. 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 Dual and single contrast images of the esophagus demonstrate normal caliber, contour, and mucosal pattern. No evidence of stricture, mass, or ulcerations identified. Esophageal peristalsis is moderately disorganized. A small type I hiatal hernia is present. No significant gastroesophageal reflux was seen during the course of the examination and on reflux views. Dual contrast and single contrast images of the stomach demonstrated normal contour and mucosal pattern without evidence of mass, ulceration, or other abnormality. Contrast freely passed into the gastric antrum and duodenal bulb without delay. Single and air-contrast images of the duodenal bulb demonstrate no abnormality. The duodenal sweep has a normal appearance, course, and mucosal fold appearance. No malrotation. The imaged proximal jejunum has a normal fold pattern and caliber. FLUOROSCOPY TIME: 5 minutes 37 seconds Number of Spot Images: 6 Number of Cine: 15 DOSE AREA PRODUCT: 2992 uGy-m2 (microgray-meter squared) FL/FL barium swallow IMPRESSION: 1. Limited evaluation of the hypopharynx due to patient's difficulty in swallowing both the thick and thin consistency barium. No aspiration was seen. No masses or diverticulum are noted. 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 2. Moderately disorganized esophageal peristalsis. 3. Small type I hiatal hernia. This procedure was performed by Moiz Sahu PA-C, and supervised by Dr. Banegas
== END 2024-01-23 09:58 | disposition home or self-care (01) ==
LOC: HO.XRAY 09:57
PROVIDERS: PCP Internal Medicine; Visit Provider Nurse Practitioner
DX: K21.9 Gastro-esophageal reflux disease without esophagitis (principal)
CPT/HCPCS: 74220

== ENCOUNTER → 2024-01-23 10:00 | Outpatient (BNV) | payer MEDICAID, SELFPAY | PROVIDERS: PCP Internal Medicine; Visit Provider Physician Assistant Surgical | DX: R13.10 Dysphagia, unspecified (principal) | CPT/HCPCS: 74246 ==

== ENCOUNTER 2024-09-28 13:11 | Outpatient (REF) | payer MEDICAID, SELFPAY ==
[2024-10-01 10:38] LABS: TS Negative Control Passed; TS Panel A 0; TS Panel B 0; TS Positive Control Passed; TSpotTB Negative (Negative)
== END 2024-09-28 13:12 | disposition home or self-care (01) ==
LOC: HO.CHCLDS 13:11
PROVIDERS: Visit Provider Internal Medicine
DX: Z11.1 Encounter for screening for respiratory tuberculosis (principal)
CPT/HCPCS: 36415; 86481